=== PATIENT | male | born 1995 | race American Indian/Alaskan Native ===

== ENCOUNTER 2017-02-17 07:54 | Emergency (ER) | payer SELFPAY ==
[2017-02-17 08:10] VITALS: BP 118/85
--- NOTE | 2017-02-17 08:49 | Emergency Department Report ---
HPI - General Chief Complaint: Dental/Oral Time Seen by Provider: 02/17/17 08:28 - HPI HPI: Pt here complaining of left and right upper back tooth pain. He said he does not have a dentist. Pain is 5 out of 10. Denies any swelling or drainage. Denies any nausea or vomiting. Denies any cough or congestion. Denies any shortness of breath. Denies any fever or chills. Pain is 7 out of 10 and achy and worse with eating. he tried [id number] medication but it did not help. ED Past Medical Hx - Past Medical History Previous Medical History?: No - Surgical History Past Surgical History?: No - Family History Family history: no significant - Social History Smoking Status: Never Smoker Substance Use Type: None Other Social History: single - Medications Home Medications: Home Medications Medication Instructions Recorded Confirmed Last Taken Type HYDROcodone/APAP 5-325 [[place] 1 each PO Q6HR PRN #20 tablet 03/12/15 Unknown Rx 5/325] Acetaminophen/Codeine [Tylenol 1 tab PO Q6H PRN #16 tab 02/17/17 Unknown Rx /Codeine # 3 tab] Amoxicillin [Amoxicillin TAB] 875 mg PO BID #20 tablet 02/17/17 Unknown Rx Ibuprofen [Motrin 600 MG tab] 600 mg PO Q8H PRN #15 tablet 02/17/17 Unknown Rx ED Review of Systems ROS: Stated complaint: TOOTHACHE Other details as noted in HPI Comment: All other systems reviewed and negative Constitutional: no symptoms reported Eyes: denies: eye discharge ENT: denies: ear pain, throat pain, dental pain, hearing loss, congestion Respiratory: no symptoms reported Cardiovascular: denies: chest pain, palpitations, edema, syncope Gastrointestinal: denies: abdominal pain, nausea, vomiting Musculoskeletal: denies: back pain, joint swelling, arthralgia, myalgia Skin: rash Neurological: denies: headache, weakness, abnormal gait, vertigo Physical Exam - Physical Exam Vital Signs: Vital Signs 02/17/17 08:03 Temperature 98.8 F Pulse Rate 42 L Respiratory 18 Rate Blood Pressure 118/85 O2 Sat by Pulse 100 Oximetry Vital Signs 02/17/17 02/17/17 08:03 09:34 Temperature 98.8 F Pulse Rate 42 L 72 Respiratory 18 Rate Blood Pressure 118/85 O2 Sat by Pulse 100 Oximetry General: This is a 21-year-old male well-nourished well-developed in no acute distress. Physical Exam: Head: Normocephalic, atraumatic, no abrasion, no bruising and no contusion. Eyes: Biateral pupils equal and reactive to light, bilateral EOM intact.. Bilateral conjunctival and sclera without injection, normal accommodation. Ears: Bilateral EAC without any redness drainage or swelling, bilateral TM pearly adams bilateral, tragus is normal and nontender. No auricular abnormality. No Mastoid bones tenderness. Nose: Moist, normal mucosa. Maxillary or frontal sinus tenderness. The drainage. Mouth: Without any pharyngeal exudate or erythema. Her tonsillar abscess.. Uvula is midline and oral airways patent. Moist and tongue is normal. Patient with dental caries and tender to palpate to [place] #15 and #1 without any inflammation or induration. Facial tenderness. Neck: Supple, No Cervical adenopathy, full range of motion and no C-spine tenderness. No swelling or tracheal deviation Cardiovascular: S1, S2. Regular rate and rhythm. No murmur. Capillary refill is less then 3 seconds. Lungs: Clear to auscultate bilaterally. No rhonchi, wheezes or rales. No chest wall tenderness MSK: Strength 5/5 in all extremities. No joint deformity or crepitus. Normal inspection. Full range of motion to all extremities Extremities: No clubbing, cyanosis or edema. +2 pulses. No neurovascular compromise Skin: Clean, dry and intact. No rash or lesions. Psych: Normal mood and behavior. ED Course Vital Signs 02/17/17 08:03 Temperature 98.8 F Pulse Rate 42 L Respiratory 18 Rate Blood Pressure 118/85 O2 Sat by Pulse 100 Oximetry Vital Signs 02/17/17 02/17/17 08:03 09:34 Temperature 98.8 F Pulse Rate 42 L 72 Respiratory 18 Rate Blood Pressure 118/85 O2 Sat by Pulse 100 Oximetry - Reevaluation(s) Reevaluation #1: 02/17/17 09:37 Given [place] 5/325 2 tablets emergency room ED Medical Decision Making - Medical Decision Making ED course: She here complaining of dental pain to right upper and left upper molar. He said this been going on for one month and he does not have a dentist. Patient was given [place] 5/325 2 tablets in emergency room for pain and I instructed him that he has a follow-up at [facility] for further treatment and evaluation of dental pain. Patient found to have dental caries and dental tenderness to tooth #1 and 15 without any abscess. Patient discharged home with prescription for Tylenol 3, Motrin and amoxicillin. He Voiced understand the discharge instruction in need to follow- up. Critical care attestation.: If time is entered above; I have spent that time in minutes in the direct care of this critically ill patient, excluding procedure time. ED Disposition Clinical Impression: Dental caries, Tooth ache Disposition: DC- TO HOME OR SELFCARE Is pt being admited?: No Does the pt Need Aspirin: No Condition: Stable Instructions: Dental Caries (ED), Toothache (ED) Additional Instructions: Please follow up at [facility] Take Antibiotic as prescribed Please do not drive or operate heavy machinery while taking Tylenol No. 3 as this medication causes drowsiness Prescriptions: Acetaminophen/Codeine [Tylenol /Codeine # 3 tab] 1 tab PO Q6H PRN #16 tab PRN Reason: Pain, Moderate (4-6) Amoxicillin [Amoxicillin TAB] 875 mg PO BID #20 tablet Ibuprofen [Motrin 600 MG tab] 600 mg PO Q8H PRN #15 tablet PRN Reason: Pain Referrals: [facility] [Outside] - 3-[address] [facility] [Outside] - 3-5 Days Forms: Accompanied Note, Work/School Release Form(ED)
[2017-02-17] MEDS ORDERED: NORCO 5/325 PO ONE (09:10)
== END 2017-02-17 09:50 | disposition home or self-care (01) ==
LOC: ED 07:54
DX: K02.9 Dental caries, unspecified (principal); K08.89 Other specified disorders of teeth and supporting structures
CPT/HCPCS: 99282

== ENCOUNTER 2017-08-09 02:34 | Emergency (ER) | payer SELFPAY ==
[2017-08-09 03:24] VITALS: BP 108/76
== END 2017-08-09 12:15 | disposition left against medical advice (07) ==
LOC: ED 02:34
DX: K08.89 Other specified disorders of teeth and supporting structures (principal); Z53.21 Procedure and treatment not carried out due to patient leaving prior to being seen by health care provider